=== PATIENT | male | born 1955 | race Caucasian/White ===

== ENCOUNTER → 2016-07-12 | Outpatient (CLI) | payer MEDICARE, OTHER | LOC: KOH-I 14:41 | DX: M25.552 Pain in left hip (principal) | CPT/HCPCS: 73080 ==

== ENCOUNTER → 2020-04-27 | Outpatient (CLI) | payer MEDICARE, OTHER ==
[~2020-04-27] MED LIST: ALBUTEROL1.25 MG/3 INH; ANTIVERT 25MG T25 MG PO; APTIOM200 MG PO; APTIOM400 MG PO; ASPIRIN EC81 MG PO; BREO ELLIPTA 11 EACH INH; CALAN SR120 MG PO; FENOFIBRATE200 MG PO; FLOMAX0.4 MG PO; FOLIC ACID 1 MG1 MG PO; GLUCOPHAGE 500500 MG PO; LIPITOR80 MG PO; NITROSTAT0.4 MG SL; ONFI20 MG PO; PROSCAR5 MG PO; RANITIDINE HCL300 M1 PO; SINGULAIR10 MG PO; SYNTHROID75 MCG PO; THERAGRAN M TAB1 EA PO; VIMPAT100 MG PO; VITAMIN D32000 UNI1 PO; XYZAL5 MG PO
== END ==
LOC: CT 10:33
DX: I71.4 Abdominal aortic aneurysm, without rupture (principal); N20.0 Calculus of kidney
CPT/HCPCS: 36415; 82565; Q9967

== ENCOUNTER → 2020-08-25 | Outpatient (CLI) | payer MEDICARE, OTHER | LOC: KOH-I 15:53 | DX: M54.5 Low back pain (principal); M47.816 Spondylosis without myelopathy or radiculopathy, lumbar region; M47.814 Spondylosis without myelopathy or radiculopathy, thoracic region | CPT/HCPCS: 72070; 72100 ==

== ENCOUNTER 2020-11-24 14:15 | Emergency (ER) | payer MEDICARE, OTHER ==
[~2020-11-24] VITALS: Ht 160 cm; Wt 99.8 kg
[~2020-11-24 14:15] MED LIST changes: -FLOMAX0.4 MG PO; -LIPITOR80 MG PO; -NITROSTAT0.4 MG SL; -ONFI20 MG PO; -PROSCAR5 MG PO; -SINGULAIR10 MG PO; -VIMPAT100 MG PO
[2020-11-24] MEDS ORDERED: TESSALON PERLE100 MG PO (15:58)
[2020-11-24] MEDS ORDERED: ZOFRAN ODT 4 MG4 MG PO (15:58)
[2020-11-25] MEDS ORDERED: TYLENOL 8 HOUR650 MG PO (11:21)
[2020-11-25] MEDS ORDERED: VITAMIN B-122500 MCG PO (11:22)
[2020-11-25] MEDS ORDERED: LORATADINE10 MG PO (11:23)
[2020-11-25] MEDS ORDERED: VITAMIN C 500500 MG PO (11:23)
[2020-11-25] MEDS ORDERED: METOPROLOL SUC200 MG PO (11:24)
[2020-11-25] MEDS ORDERED: TIZANIDINE HCL2 MG PO (11:25)
[2020-11-25] MEDS ORDERED: PROSCAR5 MG PO (21:58)
[2020-11-25] MEDS ORDERED: VIMPAT100 MG PO (22:01)
[2020-11-25] MEDS ORDERED: LIPITOR80 MG PO (22:06)
[2020-11-25] MEDS ORDERED: FLOMAX0.4 MG PO (22:06)
[2020-11-25] MEDS ORDERED: SINGULAIR10 MG PO (22:09)
[2020-11-25] MEDS ORDERED: NITROSTAT0.4 MG SL (22:10)
== END 2020-11-24 18:00 | disposition home or self-care (01) ==
LOC: ER1 14:15
DX: U07.1 COVID-19 (principal)
CPT/HCPCS: 99283

== ENCOUNTER 2020-11-24 20:47 | Inpatient (IN) | payer MEDICARE, OTHER ==
[~2020-11-24] VITALS: Ht 165.1 cm; Wt 122.0 kg
[~2020-11-24 20:47] MED LIST changes: +TESSALON PERLE100 MG PO; +ZOFRAN ODT 4 MG4 MG PO
[2020-11-24 21:07] LABS: HEMOGLOBIN 14.5 gm/dl (14.0-17.5); RED BLOOD COUNT 4.47 M/UL (4.20-5.50); WHITE BLOOD COUNT 8.3 K/UL (4.5-11.0)
[2020-11-24 21:58] LABS: BUN/CREATININE RATIO 20 (0-10)
[2020-11-25 08:35] LABS: HEMOGLOBIN 12.5 gm/dl (14.0-17.5); RED BLOOD COUNT 4.02 M/UL (4.20-5.50); WHITE BLOOD COUNT 14.7 K/UL (4.5-11.0)
[2020-11-25] MEDS ORDERED: TYLENOL 8 HOUR650 MG PO (11:21)
[2020-11-25] MEDS ORDERED: VITAMIN B-122500 MCG PO (11:22)
[2020-11-25] MEDS ORDERED: LORATADINE10 MG PO (11:23)
[2020-11-25] MEDS ORDERED: VITAMIN C 500500 MG PO (11:23)
[2020-11-25] MEDS ORDERED: METOPROLOL SUC200 MG PO (11:24)
[2020-11-25] MEDS ORDERED: TIZANIDINE HCL2 MG PO (11:25)
[2020-11-25] MEDS ORDERED: PROSCAR5 MG PO (21:58)
[2020-11-25] MEDS ORDERED: VIMPAT100 MG PO (22:01)
[2020-11-25] MEDS ORDERED: LIPITOR80 MG PO (22:06)
[2020-11-25] MEDS ORDERED: FLOMAX0.4 MG PO (22:06)
[2020-11-25] MEDS ORDERED: SINGULAIR10 MG PO (22:09)
[2020-11-25] MEDS ORDERED: NITROSTAT0.4 MG SL (22:10)
[2020-11-26 03:43] LABS: HEMOGLOBIN 12.7 gm/dl (14.0-17.5); RED BLOOD COUNT 3.97 M/UL (4.20-5.50); WHITE BLOOD COUNT 14.6 K/UL (4.5-11.0)
[2020-11-26 04:16] LABS: BUN/CREATININE RATIO 33 (0-10)
[2020-11-26] MEDS ORDERED: ONFI10 MG PO (21:57)
[2020-11-27 06:30] LABS: HEMOGLOBIN 14.4 gm/dl (14.0-17.5); WHITE BLOOD COUNT 17.4 K/UL (4.5-11.0)
[2020-11-27 06:34] LABS: RED BLOOD COUNT 4.45 M/UL (4.20-5.50)
[2020-11-27 07:02] LABS: BUN/CREATININE RATIO 36 (0-10)
[2020-11-28 05:51] LABS: RED BLOOD COUNT 4.37 M/UL (4.20-5.50)
[2020-11-28 05:52] LABS: WHITE BLOOD COUNT 12.6 K/UL (4.5-11.0)
[2020-11-28 07:32] LABS: BUN/CREATININE RATIO 37 (0-10)
[2020-11-29 04:23] LABS: HEMOGLOBIN 13.8 gm/dl (14.0-17.5); RED BLOOD COUNT 4.28 M/UL (4.20-5.50); WHITE BLOOD COUNT 14.8 K/UL (4.5-11.0)
[2020-11-29 05:35] LABS: BUN/CREATININE RATIO 42 (0-10)
[2020-11-30 04:21] LABS: HEMOGLOBIN 14.7 gm/dl (14.0-17.5); RED BLOOD COUNT 4.57 M/UL (4.20-5.50)
[2020-11-30 04:22] LABS: WHITE BLOOD COUNT 10.1 K/UL (4.5-11.0)
--- NOTE | 2020-11-30 04:29 | NUR ---
11/29 2130 pt OG tube leaking when attempting to give medications and flush it. replaced OG tube and ordered KUB to confirm placement.
[2020-11-30 05:02] LABS: BUN/CREATININE RATIO 43 (0-10)
--- NOTE | 2020-11-30 09:45 | NUR ---
11/30/20 0945 OK TO USE OGT PER DR SCHREIBER
[2020-12-01 05:17] LABS: RED BLOOD COUNT 4.4 M/UL (4.20-5.50); WHITE BLOOD COUNT 8.4 K/UL (4.5-11.0)
[2020-12-01 05:41] LABS: BUN/CREATININE RATIO 43 (0-10)
[2020-12-02 05:31] LABS: HEMOGLOBIN 13.4 gm/dl (14.0-17.5); RED BLOOD COUNT 4.2 M/UL (4.20-5.50); WHITE BLOOD COUNT 9.9 K/UL (4.5-11.0)
[2020-12-02 06:01] LABS: BUN/CREATININE RATIO 54 (0-10)
[2020-12-03 04:19] LABS: HEMOGLOBIN 13.1 gm/dl (14.0-17.5); RED BLOOD COUNT 4.13 M/UL (4.20-5.50)
[2020-12-03 04:24] LABS: WHITE BLOOD COUNT 13.1 K/UL (4.5-11.0)
[2020-12-03 04:37] LABS: BUN/CREATININE RATIO 62 (0-10)
[2020-12-04 05:39] LABS: HEMOGLOBIN 13.2 gm/dl (14.0-17.5); RED BLOOD COUNT 4.16 M/UL (4.20-5.50)
[2020-12-04 05:41] LABS: WHITE BLOOD COUNT 16.8 K/UL (4.5-11.0)
[2020-12-04 06:00] LABS: BUN/CREATININE RATIO 73 (0-10)
[2020-12-05 05:02] LABS: RED BLOOD COUNT 4.03 M/UL (4.20-5.50)
[2020-12-05 08:16] LABS: BUN/CREATININE RATIO 85 (0-10)
[2020-12-06 05:15] LABS: HEMOGLOBIN 13.4 gm/dl (14.0-17.5); RED BLOOD COUNT 4.24 M/UL (4.20-5.50); WHITE BLOOD COUNT 13.2 K/UL (4.5-11.0)
[2020-12-06 05:46] LABS: BUN/CREATININE RATIO 81 (0-10)
[2020-12-07 05:51] LABS: HEMOGLOBIN 13.7 gm/dl (14.0-17.5); RED BLOOD COUNT 4.17 M/UL (4.20-5.50)
[2020-12-07 06:18] LABS: BUN/CREATININE RATIO 92 (0-10)
[2020-12-08 05:46] LABS: HEMOGLOBIN 13.9 gm/dl (14.0-17.5); RED BLOOD COUNT 4.29 M/UL (4.20-5.50); WHITE BLOOD COUNT 8.6 K/UL (4.5-11.0)
[2020-12-08 06:18] LABS: BUN/CREATININE RATIO 91 (0-10)
[2020-12-09 04:57] LABS: HEMOGLOBIN 13.9 gm/dl (14.0-17.5); RED BLOOD COUNT 4.24 M/UL (4.20-5.50); WHITE BLOOD COUNT 8.6 K/UL (4.5-11.0)
[2020-12-09 05:29] LABS: BUN/CREATININE RATIO 81 (0-10)
[2020-12-10 03:45] LABS: HEMOGLOBIN 13.9 gm/dl (14.0-17.5); RED BLOOD COUNT 4.36 M/UL (4.20-5.50)
[2020-12-10 03:48] LABS: WHITE BLOOD COUNT 5.5 K/UL (4.5-11.0)
[2020-12-10 04:10] LABS: BUN/CREATININE RATIO 73 (0-10)
[2020-12-11 04:39] LABS: HEMOGLOBIN 14.2 gm/dl (14.0-17.5); RED BLOOD COUNT 4.41 M/UL (4.20-5.50); WHITE BLOOD COUNT 5.3 K/UL (4.5-11.0)
[2020-12-11 04:58] LABS: BUN/CREATININE RATIO 73 (0-10)
[2020-12-12 05:07] LABS: RED BLOOD COUNT 4.67 M/UL (4.20-5.50)
[2020-12-12 05:23] LABS: WHITE BLOOD COUNT 7.5 K/UL (4.5-11.0)
[2020-12-12 05:25] LABS: BUN/CREATININE RATIO 70 (0-10)
[2020-12-13 05:52] LABS: HEMOGLOBIN 14.3 gm/dl (14.0-17.5); RED BLOOD COUNT 4.45 M/UL (4.20-5.50)
[2020-12-13 05:53] LABS: WHITE BLOOD COUNT 11.8 K/UL (4.5-11.0)
[2020-12-13 06:10] LABS: BUN/CREATININE RATIO 73 (0-10)
[2020-12-14 05:38] LABS: HEMOGLOBIN 15.4 gm/dl (14.0-17.5); RED BLOOD COUNT 4.74 M/UL (4.20-5.50); WHITE BLOOD COUNT 12.4 K/UL (4.5-11.0)
[2020-12-14 06:09] LABS: BUN/CREATININE RATIO 64 (0-10)
[2020-12-15 05:10] LABS: HEMOGLOBIN 14.8 gm/dl (14.0-17.5); RED BLOOD COUNT 4.59 M/UL (4.20-5.50); WHITE BLOOD COUNT 11.8 K/UL (4.5-11.0)
[2020-12-15 12:14] LABS: HBSAG SCREEN Negative (Negative); HEP A AB, IGM Negative (Negative); HEP B CORE AB, IGM Negative (Negative); HEP C VIRUS AB 0.2 (0.0-0.9)
[2020-12-16 05:41] LABS: HEMOGLOBIN 14.2 gm/dl (14.0-17.5); RED BLOOD COUNT 4.42 M/UL (4.20-5.50)
[2020-12-16 05:43] LABS: WHITE BLOOD COUNT 8.1 K/UL (4.5-11.0)
[2020-12-17 05:31] LABS: HEMOGLOBIN 11.5 gm/dl (14.0-17.5); RED BLOOD COUNT 3.74 M/UL (4.20-5.50); WHITE BLOOD COUNT 6.1 K/UL (4.5-11.0)
[2020-12-18 05:20] LABS: RED BLOOD COUNT 3.26 M/UL (4.20-5.50); WHITE BLOOD COUNT 7.9 K/UL (4.5-11.0)
[2020-12-18 08:13] LABS: ANTISTREPTOLYSIN O AB <20.0 IU/mL (0.0-200.0); COMPLEMENT C3, SERUM 99 mg/dL (82-167); COMPLEMENT C4, SERUM 15 mg/dL (12-38)
[2020-12-18 11:10] LABS: HBSAG SCREEN Negative (Negative); HEP B CORE AB, TOT Negative (Negative); HEP C VIRUS AB <0.1 (0.0-0.9)
[2020-12-18 13:10] LABS: ANTI-DSDNA ANTIBODIES <1 IU/mL (0-9)
[2020-12-19 05:25] LABS: HEMOGLOBIN 10.1 gm/dl (14.0-17.5); RED BLOOD COUNT 3.24 M/UL (4.20-5.50)
[2020-12-19 05:30] LABS: WHITE BLOOD COUNT 9.9 K/UL (4.5-11.0)
[2020-12-20 08:11] LABS: HEMOGLOBIN 8.9 gm/dl (14.0-17.5); WHITE BLOOD COUNT 8.9 K/UL (4.5-11.0)
[2020-12-20 08:13] LABS: RED BLOOD COUNT 2.86 M/UL (4.20-5.50)
[2020-12-20 18:08] LABS: HEPARIN INDUCED PLATELET AB 0.076 OD (0.000-0.400)
[2020-12-21 05:25] LABS: HEMOGLOBIN 8.4 gm/dl (14.0-17.5); RED BLOOD COUNT 2.69 M/UL (4.20-5.50); WHITE BLOOD COUNT 10.9 K/UL (4.5-11.0)
[2020-12-21 11:09] LABS: ATYPICAL PANCA <1:20 titer (Neg:<1:20); CYTOPLASMIC (C-ANCA) <1:20 titer (Neg:<1:20); PERINUCLEAR (P-ANCA) <1:20 titer (Neg:<1:20)
[2020-12-21 17:53] LABS: ADENOVIRUS F 40/41 Not Detected (Negative); ASTROVIRUS Not Detected (Negative); CAMPYLOBACTER Not Detected (Negative); CLOSTRIDIUM DIFFICILE TOX A/B Not Detected (Negative); CRYPTOSPORIDIUM Not Detected (Negative); E.COLI 0157 Not Detected (Negative); ENTAMOEBA HISTOLYTICA Not Detected (Negative); ENTEROAGGREGATIVE E.COLI (EAEC Not Detected (Negative); ENTEROPATHOGENIC E.COLI (EPEC) Not Detected (Negative); ENTEROTOXIGENIC E.COLI (ETEC) Not Detected (Negative); GIARDIA LAMBLIA Not Detected (Negative); NOROVIRUS GI/GII Not Detected (Negative); PLESIOMONAS SHIGELLOIDES Not Detected (Negative); ROTOVIRUS A Not Detected (Negative); SALMONELLA Not Detected (Negative); SAPOVIRUS Not Detected (Negative); SHIG/ENTEROINVAS.ECOLI (EIEC) Not Detected (Negative); SHIGA-LIK TOX.PRO.E.COLI (STEC Not Detected (Negative); VIBRIO Not Detected (Negative); VIBRIO CHOLERAE Not Detected (Negative); YERSINIA ENTEROCOLITICA Not Detected (Negative)
[2020-12-21 20:10] LABS: ADAMTS13 ACTIVITY 27.6 % (>66.8)
[2020-12-22 05:52] LABS: HEMOGLOBIN 7.6 gm/dl (14.0-17.5); RED BLOOD COUNT 2.5 M/UL (4.20-5.50); WHITE BLOOD COUNT 8.4 K/UL (4.5-11.0)
[2020-12-22 14:14] LABS: A/G RATIO 1.7 (0.7-1.7); ALBUMIN 2.9 g/dL (2.9-4.4); ALPHA-1-GLOBULIN 0.2 g/dL (0.0-0.4); ALPHA-2-GLOBULIN 0.8 g/dL (0.4-1.0); BETA GLOBULIN 0.6 g/dL (0.7-1.3); GAMMA GLOBULIN 0.2 g/dL (0.4-1.8); GLOBULIN, TOTAL 1.8 g/dL (2.2-3.9); IMMUNOGLOBULIN A, QN, SERUM 54 mg/dL (61-437); IMMUNOGLOBULIN G, QN, SERUM 227 mg/dL (603-1613); IMMUNOGLOBULIN M, QN, SERUM 51 mg/dL (20-172); M-SPIKE Comment: g/dL (Not Observed); PROTEIN, TOTAL, SERUM 4.7 g/dL (6.0-8.5)
[2020-12-22 16:48] LABS: HEMOGLOBIN 10.1 gm/dl (14.0-17.5)
[2020-12-23 06:15] LABS: HEMOGLOBIN 10.1 gm/dl (14.0-17.5)
[2020-12-23 06:19] LABS: RED BLOOD COUNT 3.16 M/UL (4.20-5.50); WHITE BLOOD COUNT 17.5 K/UL (4.5-11.0)
== END 2020-12-24 03:30 | disposition expired | DRG 870 ==
LOC: ER1 20:47 → CDU 11-25 00:19 → CCU 11-25 00:19 → MED SURG 4 11-25 20:13 → CCU 11-29 16:01
PROVIDERS: Internal Medicine; Internal Medicine Nephrology; Internal Medicine Pulmonary Disease; Student in an Organized Health Care Education/Training Program; ADMIT Internal Medicine
PROC: XW033E5 Introduction of Remdesivir Anti-infective into Peripheral Vein, Percutaneous Approach, New Technology Group 5 (ICD-10-PCS; principal; 2020-11-25)
PROC: 3E0333Z Introduction of Anti-inflammatory into Peripheral Vein, Percutaneous Approach (ICD-10-PCS; 2020-11-25)
PROC: 3E0436Z Introduction of Nutritional Substance into Central Vein, Percutaneous Approach (ICD-10-PCS; 2020-11-25)
PROC: B24BZZZ Ultrasonography of Heart with Aorta (ICD-10-PCS; 2020-11-28)
PROC: 3E033XZ Introduction of Vasopressor into Peripheral Vein, Percutaneous Approach (ICD-10-PCS; 2020-11-29)
PROC: XW033G5 Introduction of Sarilumab into Peripheral Vein, Percutaneous Approach, New Technology Group 5 (ICD-10-PCS; 2020-11-29)
PROC: 5A1955Z Respiratory Ventilation, Greater than 96 Consecutive Hours (ICD-10-PCS; 2020-11-29)
PROC: 0BH18EZ Insertion of Endotracheal Airway into Trachea, Via Natural or Artificial Opening Endoscopic (ICD-10-PCS; 2020-11-29)
PROC: 05HM33Z Insertion of Infusion Device into Right Internal Jugular Vein, Percutaneous Approach (ICD-10-PCS; 2020-11-29)
PROC: B543ZZA Ultrasonography of Right Jugular Veins, Guidance (ICD-10-PCS; 2020-11-29)
PROC: 8E0ZXY6 Isolation (ICD-10-PCS; 2020-12-07)
PROC: 4A10X4Z Monitoring of Central Nervous Electrical Activity, External Approach (ICD-10-PCS; 2020-12-15)
PROC: 5A1D80Z Performance of Urinary Filtration, Prolonged Intermittent, 6-18 hours Per Day (ICD-10-PCS; 2020-12-21)
PROC: 30233N1 Transfusion of Nonautologous Red Blood Cells into Peripheral Vein, Percutaneous Approach (ICD-10-PCS; 2020-12-22)
PROC: 5A1D80Z Performance of Urinary Filtration, Prolonged Intermittent, 6-18 hours Per Day (ICD-10-PCS; 2020-12-22)
DX: A41.59 Other Gram-negative sepsis (principal); U07.1 COVID-19; J12.82 Pneumonia due to coronavirus disease 2019; G93.41 Metabolic encephalopathy; J80 Acute respiratory distress syndrome; J15.6 Pneumonia due to other Gram-negative bacteria; N17.0 Acute kidney failure with tubular necrosis; E87.0 Hyperosmolality and hypernatremia; D69.3 Immune thrombocytopenic purpura; C90.30 Solitary plasmacytoma not having achieved remission; E44.1 Mild protein-calorie malnutrition; E87.2 Acidosis; K56.7 Ileus, unspecified; K92.2 Gastrointestinal hemorrhage, unspecified; Z66 Do not resuscitate; R65.20 Severe sepsis without septic shock; A41.89 Other specified sepsis; E87.8 Other disorders of electrolyte and fluid balance, not elsewhere classified; I12.9 Hypertensive chronic kidney disease with stage 1 through stage 4 chronic kidney disease, or unspecified chronic kidney disease; G40.909 Epilepsy, unspecified, not intractable, without status epilepticus; E11.22 Type 2 diabetes mellitus with diabetic chronic kidney disease; L89.152 Pressure ulcer of sacral region, stage 2; N40.0 Benign prostatic hyperplasia without lower urinary tract symptoms; E03.9 Hypothyroidism, unspecified; D63.1 Anemia in chronic kidney disease; E66.01 Morbid (severe) obesity due to excess calories; F41.9 Anxiety disorder, unspecified; E87.5 Hyperkalemia; D69.59 Other secondary thrombocytopenia; T45.515A Adverse effect of anticoagulants, initial encounter; K75.9 Inflammatory liver disease, unspecified; I08.1 Rheumatic disorders of both mitral and tricuspid valves; R80.9 Proteinuria, unspecified; J45.909 Unspecified asthma, uncomplicated; E78.5 Hyperlipidemia, unspecified; G47.33 Obstructive sleep apnea (adult) (pediatric); N18.30 Chronic kidney disease, stage 3 unspecified; E86.0 Dehydration; E11.65 Type 2 diabetes mellitus with hyperglycemia; T38.0X5A Adverse effect of glucocorticoids and synthetic analogues, initial encounter; R53.81 Other malaise; Z90.49 Acquired absence of other specified parts of digestive tract; Z98.49 Cataract extraction status, unspecified eye; Z98.890 Other specified postprocedural states; Z79.82 Long term (current) use of aspirin; Z79.4 Long term (current) use of insulin; Z79.890 Hormone replacement therapy; Z82.49 Family history of ischemic heart disease and other diseases of the circulatory system; Z83.3 Family history of diabetes mellitus; Z86.73 Personal history of transient ischemic attack (TIA), and cerebral infarction without residual deficits
CPT/HCPCS: ECHO; 36415; 36430; 36600; 70450; 71045; 74018; 76705; 80048; 80053; 80074; 80076; 80202; 80307; 81001; 82009; 82140; 82248; 82272; 82436; 82550; 82553; 82570; 82728; 82784; 82803; 82962; 83520; 83605; 83615; 83690; 83735; 83874; 83880; 83883; 84100; 84133; 84155; 84156; 84165; 84300; 84484; 85014; 85018; 85025; 85027; 85379; 85384; 85397; 85610; 86038; 86060; 86140; 86160; 86162; 86225; 86256; 86334; 86704; 86706; 86708; 86803; 86850; 86900; 86901; 86920; 87040; 87070; 87077; 87081; 87186; 87205; 87340; 87449; 87507; 89050; 90935; 90937; 93005; 93306; 94002; 94003; 94640; 94660; 94667; 94668; 94760; 95819; 96374; 96375; 97162; 97530; 97530-GP-CQ; 99283; 99285; A6212; C1752; C1769; C9113; J0132; J0330; J1100; J1205; J1335; J1650; J1940; J2185; J2250; J2270; J2370; J2543; J2704; J2765; J2930; J3010; J3370; J3411; J7030; J7040; J7050; J7060; J7070; J7120; P9016; P9047; Q9967; U0002